=== PATIENT | female | born 1985 | race Caucasian/White ===

== ENCOUNTER 2017-05-20 16:58 | Emergency (ER) | payer OTHER ==
[2017-05-20] MEDS: HYDROmorphONE 1 MG/ML SYG IV (17:54)
[2017-05-20] MEDS: DIPHENHYDRAMINE 50 MG INJ IV (17:56)
[2017-05-20] MEDS: HYDROmorphONE 0.5 MG/0.5 ML SYG IV (17:56)
[2017-05-20] MEDS: PROCHLORPERAZINE 10 MG INJ IV (18:01)
[2017-05-20 18:14] LABS: ADD MAN DIFF? NO
[2017-05-20 18:15] LABS: WHITE BLOOD COUNT 14.8 10^3/ul (4.8-10.8)
[2017-05-20 18:15] LABS: BASOPHIL # 0.1 10^3/ul (0.0-0.1); BASOPHILS % 0.4 % (0.0-2.0); EOSINOPHILS # 0.1 10^3/ul (0.0-0.5); EOSINOPHILS % 0.5 % (0.0-7.0); HEMATOCRIT 41.6 % (37.0-47.0); HEMOGLOBIN 15.3 g/dl (12.0-16.0); LYMPHOCYTES # 2.6 10^3/ul (0.8-2.9); LYMPHOCYTES % 17.4 % (15.0-51.0); MEAN CORPUSCULAR HEMOGLOBIN 30.4 pg (29.0-33.0); MEAN CORPUSCULAR HGB CONC 36.8 g/dl (32.0-37.0); MEAN CORPUSCULAR VOLUME 82.5 fl (82.0-101.0); MEAN PLATELET VOLUME 9.5 fl (7.4-10.4); MONOCYTE # 1.3 10^3/ul (0.3-0.9); MONOCYTES % 8.7 % (0.0-11.0); NEUTROPHIL # 10.7 10^3/ul (1.6-7.5); NEUTROPHILS % 72.4 % (39.0-77.0); PLATELET COUNT 416 10^3/UL (140-415); RED BLOOD COUNT 5.04 10^6/ul (4.20-5.40); RED CELL DISTRIBUTION WIDTH 12.1 % (11.5-14.5)
[2017-05-20 18:35] LABS: ANION GAP 21 (8-16); BLOOD UREA NITROGEN 22 mg/dl (7-20); CALCIUM 9.8 mg/dl (8.4-10.2); CARBON DIOXIDE 28 mmol/L (21-31); CHLORIDE 96 mmol/L (97-110); CREATININE 0.66 mg/dl (0.44-1.00); GLUCOSE 186 mg/dl (70-220); INR 1.03; POTASSIUM 3.2 mmol/L (3.5-5.1); PROTIME 13.6 Sec (11.9-14.9); PT RATIO 1.1; SODIUM 142 mmol/L (135-144)
[2017-05-20 18:36] LABS: PARTIAL THROMBOPLASTIN TIME 28.8 Sec (25.0-35.0)
== END 2017-05-20 22:24 | disposition home or self-care (01) ==
LOC: E/R 16:58
DX: G43.909 Migraine, unspecified, not intractable, without status migrainosus (principal); I10 Essential (primary) hypertension; R40.2142 Coma scale, eyes open, spontaneous, at arrival to emergency department; R40.2252 Coma scale, best verbal response, oriented, at arrival to emergency department; R40.2362 Coma scale, best motor response, obeys commands, at arrival to emergency department
CPT/HCPCS: 36415; 70450; 80048; 85025; 85610; 85730; 96374; 96375; 99285-25

== ENCOUNTER 2018-04-28 11:09 | Emergency (ER) | payer OTHER ==
[2018-04-28 16:25] LABS: ADD MAN DIFF? NO
[2018-04-28] MEDS: KETOROLAC 15 MG INJ IV (16:27)
[2018-04-28] MEDS: LORAZEPAM 0.5 MG TAB PO (16:27)
[2018-04-28] MEDS: SOD CHLORIDE 0.9% 1,000 ML IV (16:27)
[2018-04-28] MEDS: ONDANSETRON 4 MG INJ IV (16:27)
[2018-04-28 16:31] LABS: WHITE BLOOD COUNT 11.4 10^3/ul (4.8-10.8)
[2018-04-28 16:31] LABS: BASOPHIL # 0.1 10^3/ul (0.0-0.1); BASOPHILS % 0.6 % (0.0-2.0); EOSINOPHILS # 0.3 10^3/ul (0.0-0.5); EOSINOPHILS % 2.3 % (0.0-7.0); HEMOGLOBIN 15.3 g/dl (12.0-16.0); LYMPHOCYTES # 3.9 10^3/ul (0.8-2.9); MEAN CORPUSCULAR HEMOGLOBIN 30.5 pg (29.0-33.0); MEAN CORPUSCULAR HGB CONC 35.6 g/dl (32.0-37.0); MEAN CORPUSCULAR VOLUME 85.8 fl (82.0-101.0); MEAN PLATELET VOLUME 9.4 fl (7.4-10.4); MONOCYTES % 8.8 % (0.0-11.0); NEUTROPHIL # 6.1 10^3/ul (1.6-7.5); NEUTROPHILS % 53.6 % (39.0-77.0); PLATELET COUNT 323 10^3/UL (140-415); RED BLOOD COUNT 5.01 10^6/ul (4.20-5.40); RED CELL DISTRIBUTION WIDTH 11.9 % (11.5-14.5)
[2018-04-28 16:49] LABS: ALANINE AMINOTRANSFERASE 74 IU/L (13-69); ALBUMIN 4.2 g/dl (3.3-4.9); ALBUMIN/GLOBULIN RATIO 1.16; ALKALINE PHOSPHATASE 154 IU/L (42-121); ANION GAP 12 (5-13); ASPARTATE AMINO TRANSFERASE 44 IU/L (15-46); BILIRUBIN,INDIRECT 0.7 mg/dl (0-1.1); BILIRUBIN,TOTAL 0.7 mg/dl (0.2-1.3); BLOOD UREA NITROGEN 13 mg/dl (7-20); CALCIUM 9.6 mg/dl (8.4-10.2); CARBON DIOXIDE 25 mmol/L (21-31); CHLORIDE 103 mmol/L (97-110); CREATININE 0.49 mg/dl (0.44-1.00); Estimated GFR > 60 mL/min (>60); GLUCOSE 191 mg/dl (70-220); LIPASE 40 U/L (23-300); POTASSIUM 3.7 mmol/L (3.5-5.1); SODIUM 140 mmol/L (135-144); TOTAL PROTEIN 7.8 g/dl (6.1-8.1)
[2018-04-28 17:07] LABS: ADD UMIC YES; UR AMORPHOUS CRYSTAL FEW /HPF (NONE SEEN); UR ASCORBIC ACID NEGATIVE (NEGATIVE); UR BACTERIA MANY /HPF (NONE SEEN); UR BILIRUBIN (Dip) NEGATIVE (NEGATIVE); UR BLOOD (Dip) 3+ mg/dL (NEGATIVE); UR CLARITY CLOUDY (CLEAR); UR COLOR YELLOW (YELLOW); UR GLUCOSE (Dip) 2+ mg/dL (NEGATIVE); UR KETONES (Dip) NEGATIVE (NEGATIVE); UR LEUKOCYTE ESTERASE (Dip) TRACE Leu/ul (NEGATIVE); UR MUCUS MANY /HPF (NONE SEEN); UR NITRITE (Dip) POSITIVE (NEGATIVE); UR RBC 3 /HPF (0-5); UR SPECIFIC GRAVITY (Dip) 1.024 (1.003-1.030); UR SQUAMOUS EPITHELIAL CELL MODERATE /HPF (FEW); UR TOTAL PROTEIN (Dip) NEGATIVE (NEGATIVE); UR UROBILINOGEN (Dip) NEGATIVE (NEGATIVE); UR WBC 6 /HPF (0-5)
[2018-04-28] MEDS: CEFTRIAXONE 1 GM/50 ML (PMX) 50 ML IVPB (17:54)
== END 2018-04-28 18:48 | disposition home or self-care (01) ==
LOC: E/R 11:09
DX: R20.0 Anesthesia of skin (principal); I10 Essential (primary) hypertension; N39.0 Urinary tract infection, site not specified; F41.9 Anxiety disorder, unspecified; Z86.73 Personal history of transient ischemic attack (TIA), and cerebral infarction without residual deficits
CPT/HCPCS: 36415; 80053; 81001; 83690; 85025; 96374; 96375; 99284-25

== ENCOUNTER 2018-11-17 17:24 | Inpatient (IN) | payer OTHER ==
[2018-11-17 17:42] LABS: ADD MAN DIFF? NO
[2018-11-17 17:55] LABS: WHITE BLOOD COUNT 16.5 10^3/ul (4.8-10.8)
[2018-11-17 17:55] LABS: ABNORMAL IP MESSAGE 1; BASOPHIL # 0.1 10^3/ul (0.0-0.1); BASOPHILS % 0.5 % (0.0-2.0); EOSINOPHILS # 0.4 10^3/ul (0.0-0.5); EOSINOPHILS % 2.2 % (0.0-7.0); HEMATOCRIT 41.9 % (37.0-47.0); HEMOGLOBIN 14.6 g/dl (12.0-16.0); LYMPHOCYTES # 4.6 10^3/ul (0.8-2.9); LYMPHOCYTES % 27.5 % (15.0-51.0); MEAN CORPUSCULAR HEMOGLOBIN 30.8 pg (29.0-33.0); MEAN CORPUSCULAR HGB CONC 34.8 g/dl (32.0-37.0); MEAN CORPUSCULAR VOLUME 88.4 fl (82.0-101.0); MEAN PLATELET VOLUME 9.4 fl (7.4-10.4); MONOCYTE # 1.6 10^3/ul (0.3-0.9); MONOCYTES % 9.4 % (0.0-11.0); NEUTROPHIL # 9.8 10^3/ul (1.6-7.5); NEUTROPHILS % 59.6 % (39.0-77.0); PLATELET COUNT 401 10^3/UL (140-415); RED BLOOD COUNT 4.74 10^6/ul (4.20-5.40); RED CELL DISTRIBUTION WIDTH 12.2 % (11.5-14.5)
[2018-11-17 17:59] LABS: POSITIVE DIFF @See below
[2018-11-17 18:02] LABS: ANION GAP 8 (5-13); BLOOD UREA NITROGEN 14 mg/dl (7-20); CALCIUM 9.1 mg/dl (8.4-10.2); CARBON DIOXIDE 24 mmol/L (21-31); CHLORIDE 105 mmol/L (97-110); CHOL/HDL RATIO 3.4 RATIO; CHOLESTEROL 174 mg/dl (100-200); CREATINE KINASE 45 IU/L (23-200); CREATININE 0.64 mg/dl (0.44-1.00); Estimated GFR > 60 mL/min (>60); GLUCOSE 127 mg/dl (70-220); HDL CHOLESTEROL 51 mg/dl (34-82); LDL CHOLESTEROL,CALCULATED 92 mg/dl; POTASSIUM 3.7 mmol/L (3.5-5.1); SODIUM 137 mmol/L (135-144); TRIGLYCERIDES 155 mg/dl (0-149)
[2018-11-17 18:04] LABS: ETHANOL < 10.0 mg/dl (0-0)
[2018-11-17 18:08] LABS: HEMOGLOBIN A1C 6.7 % (0-5.9)
[2018-11-17 18:11] LABS: INR 0.89; PROTIME 12.2 Sec (11.9-14.9)
[2018-11-17 18:12] LABS: PARTIAL THROMBOPLASTIN TIME 28.5 Sec (23.0-35.0)
[2018-11-17 18:14] LABS: CK INDEX 0.6; CK-MB 0.25 ng/ml (0.0-2.4); TROPONIN-I < 0.012 ng/ml (0.000-0.120)
[2018-11-17] MEDS: LORAZEPAM 2 MG INJ IV (19:04)
[2018-11-17] MEDS ORDERED: morphine 2 MG INJ IV (20:00)
[2018-11-17] MEDS ORDERED: BISACODYL (EC) 5 MG TAB PO (20:00)
[2018-11-17] MEDS ORDERED: NACL 0.9% 3 ML SYG IV (20:00)
[2018-11-17] MEDS ORDERED: ACETAMINOPHEN 325 MG TAB PO ×2 (20:00)
[2018-11-17] MEDS ORDERED: HYDROCODONE/APAP (5/325) TAB PO (20:00)
[2018-11-17] MEDS ORDERED: ONDANSETRON 4 MG INJ IV ×2 (20:00)
[2018-11-17] MEDS ORDERED: DOCUSATE SODIUM 100 MG CAP PO (20:00)
[2018-11-18] MEDS: SOD CHLORIDE 0.45% 1,000 ML IV (00:27)
[2018-11-18] MEDS: LEVETIRACETAM 500 MG TAB PO ×3 (00:28→21:28)
[2018-11-18] MEDS: FAMOTIDINE 20 MG TAB PO ×3 (00:29→21:29)
[2018-11-18] MEDS: TOPIRAMATE 100 MG TAB PO ×3 (00:33→21:33)
[2018-11-18 05:48] LABS: WHITE BLOOD COUNT 14.1 10^3/ul (4.8-10.8)
[2018-11-18 05:48] LABS: HEMATOCRIT 39.3 % (37.0-47.0); HEMOGLOBIN 13.6 g/dl (12.0-16.0); MEAN CORPUSCULAR HEMOGLOBIN 30.6 pg (29.0-33.0); MEAN CORPUSCULAR HGB CONC 34.6 g/dl (32.0-37.0); MEAN CORPUSCULAR VOLUME 88.3 fl (82.0-101.0); MEAN PLATELET VOLUME 9.5 fl (7.4-10.4); PLATELET COUNT 345 10^3/UL (140-415); RED BLOOD COUNT 4.45 10^6/ul (4.20-5.40); RED CELL DISTRIBUTION WIDTH 12.2 % (11.5-14.5)
[2018-11-18 05:49] LABS: ADD MAN DIFF? YES; POSITIVE DIFF @See below
[2018-11-18 06:19] LABS: ALANINE AMINOTRANSFERASE 39 IU/L (13-69); ALBUMIN 3.5 g/dl (3.3-4.9); ALBUMIN/GLOBULIN RATIO 1.09; ALKALINE PHOSPHATASE 77 IU/L (42-121); ANION GAP 7 (5-13); ASPARTATE AMINO TRANSFERASE 29 IU/L (15-46); BILIRUBIN,INDIRECT 0.7 mg/dl (0-1.1); BILIRUBIN,TOTAL 0.7 mg/dl (0.2-1.3); BLOOD UREA NITROGEN 12 mg/dl (7-20); CALCIUM 8.8 mg/dl (8.4-10.2); CARBON DIOXIDE 22 mmol/L (21-31); CHLORIDE 107 mmol/L (97-110); CHOL/HDL RATIO 3.1 RATIO; CHOLESTEROL 152 mg/dl (100-200); CREATININE 0.59 mg/dl (0.44-1.00); Estimated GFR > 60 mL/min (>60); GLUCOSE 125 mg/dl (70-220); HDL CHOLESTEROL 48 mg/dl (34-82); LDL CHOLESTEROL,CALCULATED 75 mg/dl; POTASSIUM 3.9 mmol/L (3.5-5.1); SODIUM 136 mmol/L (135-144); TOTAL PROTEIN 6.7 g/dl (6.1-8.1); TRIGLYCERIDES 147 mg/dl (0-149)
[2018-11-18 07:15] LABS: ANISOCYTOSIS 1+ (0-0); BAND NEUTROPHILS #M 0.5 10^3/ul (0.0-0.6); BAND NEUTROPHILS % (M) 4 % (0-4); BASOPHIL #M 0.1 10^3/ul (0.0-0.0); BASOPHILS % (M) 1 % (0-2); BURR CELLS 1+ (0-0); EOSINOPHILS % (M) 4 % (0-7); LYMPHOCYTES #M 3.3 10^3/ul (0.8-2.9); LYMPHOCYTES % (M) 24 % (15-51); MICROCYTOSIS 1+ (0-0); MONOCYTE #M 0.2 10^3/ul (0.3-0.9); MONOCYTES % (M) 2 % (0-11); PLATELET ESTIMATE NORMAL; POIKILOCYTOSIS 1+ (0-0); POLYCHROMASIA 1+ (0-0); REACTIVE LYMPHOCYTES #M 0.8 10^3/ul (0.0-0.0); REACTIVE LYMPHOCYTES% (M) 6 % (0-0); SEG NEUT #M 8.4 10^3/ul (1.6-7.5); SEGMENTED NEUTROPHILS (M) % 59 % (39-77); SMUDGE%M 12 % (0-0)
[2018-11-18 08:02] LABS: HEMOGLOBIN A1C 6.5 % (0-5.9)
[2018-11-18] MEDS: METOPROLOL (XL) 50 MG TAB PO (09:06)
[2018-11-18] MEDS: LISINOPRIL 20 MG TAB PO (09:07)
[2018-11-18] MEDS: ENOXAPARIN 40 MG/0.4 ML SYG SC (09:13)
[2018-11-18] MEDS: ESCITALOPRAM 10 MG TAB PO (12:42)
[2018-11-18] MEDS: ARIPIPRAZOLE 2 MG TAB PO (12:42)
[2018-11-18] MEDS: INSULIN ASPART [NOVOLOG] 3 ML PEN SC ×2 (17:15→21:00)
[2018-11-18] MEDS: metFORMIN 500 MG TAB PO (17:20)
[2018-11-19 05:53] LABS: ADD MAN DIFF? NO
[2018-11-19 05:58] LABS: BASOPHIL # 0.1 10^3/ul (0.0-0.1); BASOPHILS % 0.6 % (0.0-2.0); EOSINOPHILS # 0.4 10^3/ul (0.0-0.5); EOSINOPHILS % 2.6 % (0.0-7.0); HEMATOCRIT 41.9 % (37.0-47.0); HEMOGLOBIN 14.4 g/dl (12.0-16.0); LYMPHOCYTES # 3.6 10^3/ul (0.8-2.9); LYMPHOCYTES % 25.4 % (15.0-51.0); MEAN CORPUSCULAR HEMOGLOBIN 30.6 pg (29.0-33.0); MEAN CORPUSCULAR HGB CONC 34.4 g/dl (32.0-37.0); MEAN CORPUSCULAR VOLUME 89.1 fl (82.0-101.0); MEAN PLATELET VOLUME 9.4 fl (7.4-10.4); MONOCYTE # 1.2 10^3/ul (0.3-0.9); MONOCYTES % 8.7 % (0.0-11.0); NEUTROPHIL # 8.7 10^3/ul (1.6-7.5); NEUTROPHILS % 61.9 % (39.0-77.0); PLATELET COUNT 370 10^3/UL (140-415); RED CELL DISTRIBUTION WIDTH 11.9 % (11.5-14.5)
[2018-11-19] MEDS: INSULIN ASPART [NOVOLOG] 3 ML PEN SC ×2 (07:35→11:45)
[2018-11-19] MEDS: ENOXAPARIN 40 MG/0.4 ML SYG SC (08:39)
[2018-11-19] MEDS: metFORMIN 500 MG TAB PO (08:40)
[2018-11-19] MEDS: ESCITALOPRAM 10 MG TAB PO (08:40)
[2018-11-19] MEDS: LEVETIRACETAM 500 MG TAB PO (08:40)
[2018-11-19] MEDS: METOPROLOL (XL) 50 MG TAB PO (08:40)
[2018-11-19] MEDS: ARIPIPRAZOLE 2 MG TAB PO (08:40)
[2018-11-19] MEDS: TOPIRAMATE 100 MG TAB PO (08:41)
[2018-11-19] MEDS: LISINOPRIL 20 MG TAB PO (08:41)
[2018-11-19] MEDS: FAMOTIDINE 20 MG TAB PO (08:41)
[2018-11-19 10:08] LABS: ADD UMIC NO; UR ASCORBIC ACID NEGATIVE (NEGATIVE); UR BILIRUBIN (Dip) NEGATIVE (NEGATIVE); UR BLOOD (Dip) NEGATIVE (NEGATIVE); UR CLARITY CLEAR (CLEAR); UR COLOR YELLOW (YELLOW); UR GLUCOSE (Dip) NEGATIVE (NEGATIVE); UR KETONES (Dip) NEGATIVE (NEGATIVE); UR LEUKOCYTE ESTERASE (Dip) NEGATIVE Leu/ul (NEGATIVE); UR NITRITE (Dip) NEGATIVE (NEGATIVE); UR SPECIFIC GRAVITY (Dip) 1.014 (1.003-1.030); UR TOTAL PROTEIN (Dip) NEGATIVE (NEGATIVE); UR UROBILINOGEN (Dip) NEGATIVE (NEGATIVE)
[2018-11-19 10:58] LABS: AMPHETAMINE/METHAMPHETAMINE Negative (NEGATIVE); BARBITURATES Negative (NEGATIVE); BENZODIAZEPINES Negative (NEGATIVE); CANNABINOIDS Negative (NEGATIVE); COCAINE Negative (NEGATIVE); OPIATES Negative (NEGATIVE)
== END 2018-11-19 14:35 | disposition home or self-care (01) | DRG 92 ==
LOC: E/R 17:24 → MS3 11-18 14:40 → 6WM 19:32
DX: R20.0 Anesthesia of skin (principal); Z68.42 Body mass index [BMI] 45.0-49.9, adult; R53.1 Weakness; F32.9 Major depressive disorder, single episode, unspecified; G40.909 Epilepsy, unspecified, not intractable, without status epilepticus; E11.9 Type 2 diabetes mellitus without complications; I10 Essential (primary) hypertension; E66.01 Morbid (severe) obesity due to excess calories; D72.829 Elevated white blood cell count, unspecified; F43.9 Reaction to severe stress, unspecified
CPT/HCPCS: 36415; 70450; 70551; 70553; 71045; 72040; 80048; 80053; 80061; 80307; 81003; 82550; 82553; 82962; 83036; 83735; 84443; 84484; 85025; 85610; 85730; 92610; 93005; 96374; 97110; 97116; 97162; 97530; 99285-25; G0378